=== PATIENT | female | born 1970 | race Hispanic/Latino ===

== ENCOUNTER 2017-09-12 16:15 | Emergency (ER) | payer BC ==
[~2017-09-12] VITALS: Ht 149.9 cm; Wt 113.0 kg
[2017-09-12] MEDS ORDERED: LEVEMIR100 UNIT/M SC (17:01)
[2017-09-12] MEDS ORDERED: METFORMIN500 MG PO (17:01)
[2017-09-12] MEDS ORDERED: TOPAMAX100 MG PO (17:02)
[2017-09-12] MEDS ORDERED: FUROSEMIDE20 MG PO (17:03)
[2017-09-12] MEDS ORDERED: FARXIGA5 MG PO (17:05)
[2017-09-12] MEDS ORDERED: EPIPEN 2-P0.3 MG/0.3 SC (17:07)
[2017-09-12] MEDS ORDERED: DELTASONE20 MG PO (17:07)
[2017-09-12] MEDS ORDERED: OXYCODONE HCL15 MG PO (17:08)
[2017-09-12] MEDS ORDERED: ZANAFLEX4 M2 PO (17:09)
[2017-09-12 17:15] VITALS: BP 111/55
== END 2017-09-12 17:20 | disposition home or self-care (01) | DRG 923 ==
LOC: ED 16:15
DX: T78.1XXA Other adverse food reactions, not elsewhere classified, initial encounter (principal); R06.02 Shortness of breath; L29.9 Pruritus, unspecified

== ENCOUNTER 2017-12-28 01:09 | Emergency (ER) | payer BC ==
[~2017-12-28] VITALS: Ht 149.9 cm; Wt 110.2 kg
[~2017-12-28 01:09] MED LIST: DELTASONE20 MG PO; EPIPEN 2-P0.3 MG/0.3 SC; FARXIGA5 MG PO; FUROSEMIDE20 MG PO; LEVEMIR100 UNIT/M SC; METFORMIN500 MG PO; OXYCODONE HCL15 MG PO; TOPAMAX100 MG PO; ZANAFLEX4 M2 PO
[2017-12-28 02:13] VITALS: BP 131/70
== END 2017-12-28 02:20 | disposition home or self-care (01) | DRG 923 ==
LOC: ED 01:09
DX: T78.1XXA Other adverse food reactions, not elsewhere classified, initial encounter (principal); L29.9 Pruritus, unspecified; Z91.013 Allergy to seafood

== ENCOUNTER 2020-08-14 18:22 | Emergency (ER) | payer BC ==
[~2020-08-14] VITALS: Ht 149.9 cm; Wt 93.0 kg
[~2020-08-14 18:22] MED LIST changes: +OXYCODONE HCL E20 M1 PO; -OXYCODONE HCL15 MG PO
[2020-08-14] MEDS ORDERED: FAMOTIDINE PO (18:40)
[2020-08-14] MEDS ORDERED: WELLBUTRIN200 M1 PO (18:41)
[2020-08-14] MEDS ORDERED: MELOXICAM7.5 MG PO (18:42)
[2020-08-14] MEDS ORDERED: LORATADINE10 M1 PO (18:42)
[2020-08-14] MEDS ORDERED: FENTANYL50 MCG/HR TD (18:43)
[2020-08-14] MEDS ORDERED: OZEMPIC4 MG SC (18:44)
[2020-08-14] MEDS ORDERED: LISINOPRIL10 MG PO (18:44)
[2020-08-14] MEDS ORDERED: PENICILLN VK500 MG PO (18:46)
[2020-08-14] MEDS ORDERED: IBUPROFEN600 MG PO (18:46)
[2020-08-14 19:02] VITALS: BP 138/77
== END 2020-08-14 19:02 | disposition home or self-care (01) | DRG 159 ==
LOC: ED 18:22
DX: K03.81 Cracked tooth (principal)

== ENCOUNTER 2020-12-17 02:40 | Emergency (ER) | payer SELFPAY ==
[~2020-12-17] VITALS: Ht 149.9 cm; Wt 113.0 kg
[~2020-12-17 02:40] MED LIST changes: +FAMOTIDINE PO; +FENTANYL50 MCG/HR TD; +IBUPROFEN600 MG PO; +LISINOPRIL10 MG PO; +LORATADINE10 M1 PO; +MELOXICAM7.5 MG PO; +OZEMPIC4 MG SC; +PENICILLN VK500 MG PO; +WELLBUTRIN200 M1 PO
[2020-12-17] MEDS ORDERED: MEDDOSEPAK PO (03:01)
[2020-12-17] MEDS ORDERED: VISTARIL 50MG C50 MG PO (03:01)
[2020-12-17] MEDS ORDERED: FARXIGA10 MG PO (03:30)
[2020-12-17] MEDS ORDERED: GABAPENTIN100 MG PO (03:31)
[2020-12-17] MEDS ORDERED: BANOPHEN50 MG PO (03:32)
[2020-12-17] MEDS ORDERED: HYDROXYZ HCL25 MG PO (03:32)
[2020-12-17] MEDS ORDERED: VOLTAREN1%GEL TOP (03:34)
[2020-12-17] MEDS ORDERED: OMEPRAZOLE DR40 MG PO (03:35)
[2020-12-17] MEDS ORDERED: [UNRECOGNIZED DRUG - OTHER] (03:35)
[2020-12-17] MEDS ORDERED: CRESTOR10 MG PO (03:36)
[2020-12-17 04:08] VITALS: BP 108/78
== END 2020-12-17 04:08 | disposition home or self-care (01) | DRG 607 ==
LOC: ED 02:40
DX: L29.9 Pruritus, unspecified (principal)

== ENCOUNTER 2021-07-18 11:04 | Emergency (ER) | payer OTHER ==
[~2021-07-18] VITALS: Ht 149.9 cm; Wt 97.7 kg
[~2021-07-18 11:04] MED LIST changes: +BANOPHEN50 MG PO; +CRESTOR10 MG PO; +FARXIGA10 MG PO; +GABAPENTIN100 MG PO; +HYDROXYZ HCL25 MG PO; +MEDDOSEPAK PO; +OMEPRAZOLE DR40 MG PO; +VISTARIL 50MG C50 MG PO; +VOLTAREN1%GEL TOP; +[UNRECOGNIZED DRUG - OTHER]
[2021-07-18 14:32] VITALS: BP 137/73
== END 2021-07-18 14:40 | disposition home or self-care (01) | DRG 563 ==
LOC: ED 11:04
DX: S39.012A Strain of muscle, fascia and tendon of lower back, initial encounter (principal); I10 Essential (primary) hypertension; E11.9 Type 2 diabetes mellitus without complications; E78.00 Pure hypercholesterolemia, unspecified; M54.50 Low back pain, unspecified; G89.29 Other chronic pain; W17.89XA Other fall from one level to another, initial encounter; Y93.E9 Activity, other interior property and clothing maintenance; Y92.59 Other trade areas as the place of occurrence of the external cause; Y99.0 Civilian activity done for income or pay; Z79.84 Long term (current) use of oral hypoglycemic drugs

== ENCOUNTER 2021-10-22 18:08 | Emergency (ER) | payer OTHER, BC ==
[~2021-10-22] VITALS: Ht 149.9 cm; Wt 100.0 kg
[2021-10-22 18:24] VITALS: BP 133/96
[2021-10-22 18:31] VITALS: BP 125/75
[2021-10-22] MEDS ORDERED: PERCOCET 5/325M1 TAB PO ×3 (18:36→18:52)
[2021-10-22 18:47] VITALS: BP 104/88
[2021-10-22 18:57] VITALS: BP 104/88
== END 2021-10-22 19:01 | disposition home or self-care (01) | DRG 552 ==
LOC: ED 18:08
DX: M54.9 Dorsalgia, unspecified (principal)

== ENCOUNTER 2021-12-29 21:32 | Emergency (ER) | payer BC ==
[~2021-12-29] VITALS: Ht 149.9 cm; Wt 96.0 kg
[~2021-12-29 21:32] MED LIST changes: +PERCOCET 5/325M1 TAB PO
[2021-12-29 21:45] VITALS: BP 111/69
[2021-12-29 22:11] LABS: HEMATOCRIT 41.2 % (37.0-47.0); HEMOGLOBIN 13.9 g/dl (12.0-16.0); IMMATURE GRANULOCYTES 0.2 % (0.0-5.0); MEAN CELL VOLUME 89.6 fL CALC (80.0-100.0); MEAN CORPUSCULAR HGB 30.2 pG CALC (26.0-32.0); MEAN CORPUSCULAR HGB CONC 33.7 g/dL CAL (32.0-36.0); NEUT# 3.17 thou/uL (2.00-7.15); RED BLOOD COUNT 4.6 mill/uL (4.20-5.60); RED CELL DISTRI WIDTH 11.6 % (11.5-15.5)
[2021-12-29 22:27] LABS: ALBUMIN 4.3 g/dL (3.2-5.0); ALKALINE PHOSPHATASE 113 u/l (38-126); ANION GAP 15 (6-22 (CALC)); BILIRUBIN, TOTAL 1.1 mg/dL (0.0-1.4); BUN 10 mg/dL (7-17); BUN/CREATININE RATIO 11 (12-20 (CALC)); CARBON DIOXIDE 25 mmol/l (22-30); CHLORIDE 99 mmol/l (95-108); CREATININE 0.9 mg/dL (0.5-1.0); GFR FOR AFR.AMER. > 60 ML/MIN (>=60 (CALC)); GFR OTHER RACES > 60 ML/MIN (>=60 (CALC)); LIPASE 112 u/l (23-300); MAGNESIUM 1.7 mg/dL (1.6-2.3); POTASSIUM 4.1 mmol/l (3.5-5.1); SGOT/AST 34 u/l (14-36); SODIUM 136 mmol/l (137-146); TOTAL PROTEIN 7.7 g/dL (6.3-8.2)
[2021-12-29 22:28] LABS: D-DIMER 0.5 mg/L (0.19-0.60)
[2021-12-29 22:53] LABS: ACT PARTIAL THROMBO TIME 22.7 SECONDS (20.0-32.5); PROTHROMBIN TIME 10.4 SECONDS (9.0-12.5)
[2021-12-29] MEDS ORDERED: CITRATE OF MEGNESIA PO (23:24)
[2021-12-29] MEDS ORDERED: PROMETHAZINE HY25 M1 PO (23:24)
[2021-12-29 23:40] VITALS: BP 111/69
== END 2021-12-29 23:55 | disposition home or self-care (01) | DRG 392 ==
LOC: ED 21:32
PROVIDERS: Family Medicine
DX: R11.2 Nausea with vomiting, unspecified (principal); I45.81 Long QT syndrome

== ENCOUNTER 2022-05-27 18:57 | Emergency (ER) | payer BC ==
[~2022-05-27] VITALS: Ht 149.9 cm; Wt 86.6 kg
[~2022-05-27 18:57] MED LIST changes: +CITRATE OF MEGNESIA PO; +PROMETHAZINE HY25 M1 PO
[2022-05-27 19:15] VITALS: BP 121/80
== END 2022-05-27 21:00 | disposition left against medical advice (07) | DRG 951 ==
LOC: ED 18:57 → LWOBS 20:00
DX: Z53.21 Procedure and treatment not carried out due to patient leaving prior to being seen by health care provider (principal)

== ENCOUNTER 2024-02-16 17:40 | Emergency (ER) | payer OTHER ==
[~2024-02-16] VITALS: Ht 149.9 cm; Wt 92.9 kg
[~2024-02-16 17:40] MED LIST changes: +ACTOS30 MG PO; +AMOXICILLIN875 MG OR; +BENADRYL 50MG C50 MG OR; +BENADRYL 50MG C50 MG PO; +CIPRO XR500 MG PO; +DOCUSATE SOD100 M2 PO; +FENTANYL25 MCG/HR TD; +FLEXERIL OR; +FUROSEMIDE80 MG PO; +GLIPIZIDE XL5 MG PO; +HORIZANT300 MG PO; +HYDROCO/APAP1 T10 OR; +LANTUS100 MG/ML SC; +LANTUS100 UNIT/M SC; +LORTAB 5 OR; +LORTAB 7.5 OR; +MEDDOSEPAK OR; +MELOXICAM15 MG PO; +METFORMIN500 M1 PO; +NAPROSYN250 MG OR; +NAPROSYN500 MG PO; +OMEPRAZOLE20 MG PO; +PENICILLN VK500 M1 OR; +PENICILLN VK500 MG OR; +PEPCID20 MG PO; +PERCOCET1 TA4 PO; +POTASSIUM CHLO20 MEQ PO; +PREVACID30 M1 OR; +PREVACID30 M1 PO; +SULFACET SOD10 % OU; +TIZANIDINE4 MG PO; +TOPIRAMATE50 MG PO; +TRAMADOL HCL50 MG OR; +TRIAM/HCTZ1 CAP OR; +TYLENOL # 31 TAB OR; +ULTRAM50 MG OR; +VENTOLIN HFA IN; +VICTOZA18 MG/3 ML SC; +ZOFRAN ODT4 MG OR
[2024-02-16 18:07] VITALS: BP 120/88
[2024-02-16 18:15] VITALS: BP 120/73
[2024-02-16 18:30] VITALS: BP 114/72
[2024-02-16 18:45] VITALS: BP 113/73
== END 2024-02-16 19:03 | disposition home or self-care (01) | DRG 605 ==
LOC: ED 17:40
PROC: 2W3JX1Z Immobilization of Right Finger using Splint (ICD-10-PCS; principal; 2024-02-16)
DX: S60.031A Contusion of right middle finger without damage to nail, initial encounter (principal); I10 Essential (primary) hypertension; E11.9 Type 2 diabetes mellitus without complications; E78.00 Pure hypercholesterolemia, unspecified; W23.2XXA Caught, crushed, jammed or pinched between a moving and stationary object, initial encounter; Z79.84 Long term (current) use of oral hypoglycemic drugs; Z79.4 Long term (current) use of insulin